=== PATIENT | female | born 1975 | race African-American/Black ===

== ENCOUNTER 2019-01-02 15:01 | Emergency (ER) | payer OTHER ==
[~2019-01-02] VITALS: Ht 154.9 cm; Wt 81.7 kg
[~2019-01-02 15:01] MED LIST: BACTRIM DS TAB1 EACH PO; NORCO 5-325 TA1 EACH PO; PREDNISONE 20 M20 MG PO; PROAIR HFA8.5 GM IH; PROVENTIL HFA6.7 G1 INH; SYMBICORT160 MCG/4. INH
[2019-01-02] MEDS ORDERED: ALESSE-281 EACH PO (15:32)
[2019-01-02] MEDS ORDERED: PREDNISONE 20 M20 M1 PO (16:11)
[2019-01-02] MEDS ORDERED: SINGULAIR 10 MG10 M1 PO (16:11)
[2019-01-02] MEDS ORDERED: ALBUTEROL2.5 MG/31 INH (16:54)
[2019-01-02] MEDS ORDERED: NEBULIZER MISCELL (16:54)
[2019-01-02 17:04] VITALS: BP 124/84
--- NOTE | 2019-01-03 10:59 | EKG ---
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: TIMUR : 1975 Requested By: Michael Plummer Order Number: [id number] MD: Richard Acuna Measurements Intervals [place] Rate: 71 P: 50 MS: 175 QRS: 45 QRSD: 83 T: 30 QT: 398 QTc: 433 Interpretive Statements Sinus rhythm Borderline T abnormalities, anterior leads No previous ECG available for comparison Electronically Signed On 01-03-2019 10:59:04 [employer]SULTANT by Richard Acuna [email or web address] ��������������������������������������������� <ELECTRONICALLY SIGNED> ���������������������������������������� By: Richard Acuna MD, [facility] ��������������������������������������������� 01/03/19 1059 [address] [facility] Richard Acuna MD, FACC /EPI
== END 2019-01-02 17:05 | disposition home or self-care (01) ==
LOC: ER 15:01
DX: J45.901 Unspecified asthma with (acute) exacerbation (principal); N80.9 Endometriosis, unspecified; Z88.6 Allergy status to analgesic agent; Z88.0 Allergy status to penicillin; Z90.721 Acquired absence of ovaries, unilateral

== ENCOUNTER 2019-10-06 09:48 | Emergency (ER) | payer OTHER ==
[~2019-10-06] VITALS: Ht 154.9 cm; Wt 81.7 kg
[~2019-10-06 09:48] MED LIST changes: +ALBUTEROL2.5 MG/31 INH; +ALESSE-281 EACH PO; +NEBULIZER MISCELL; +PREDNISONE 20 M20 M1 PO; +SINGULAIR 10 MG10 M1 PO
[2019-10-06 10:02] LABS: URINE BILIRUBIN NEGATIVE (Negative); URINE BLOOD NEGATIVE (Negative); URINE CLARITY CLEAR; URINE COLOR YELLOW; URINE GLUCOSE-RANDOM* NEGATIVE (Negative); URINE KETONES NEGATIVE (Negative); URINE LEUKOCYTES-REFLEX 1+ (Negative); URINE NITRITE-REFLEX NEGATIVE (Negative); URINE PROTEIN (DIPSTICK) NEGATIVE (Negative); URINE UROBILINOGEN 0.2 E.U./dl (0.2-1.0)
[2019-10-06 10:25] LABS: ABSOLUTE NEUTROPHILS 2.6 thou/uL (1.4-8.2); BASOPHILS 0.9 % (0.0-2.0); EOSINOPHILS 0.5 % (0.0-3.0); HEMATOCRIT 43.4 % (37.0-47.0); HEMOGLOBIN 13.8 gm/dL (12.0-15.0); MCH 26.5 pg (26.0-34.0); MCHC 31.8 g/dL (28.0-37.0); MCV 83.4 fL (80.0-100.0); MONOCYTES 9.2 % (1.0-8.0); PLATELET COUNT 330 thou/uL (150-400); POLYS 44.4 % (36.0-66.0); RDW 15.6 % (10.5-14.5); WBC 5.8 thou/uL (4.0-11.0)
[2019-10-06 10:27] LABS: CALCIUM 9.4 mg/dL (8.5-10.1); CREATININE 0.9 mg/dL (0.6-1.0); POTASSIUM 4.3 mmol/L (3.5-5.1)
[2019-10-06 10:33] LABS: ALBUMIN 3.9 g/dL (3.4-5.0); TOTAL BILIRUBIN 0.5 mg/dL (<0.1-1.0); TOTAL PROTEIN 8.1 g/dL (6.4-8.2)
[2019-10-06 10:35] LABS: BACTERIA-REFLEX 1-9 Few /HPF (None Seen); CASTS None Seen /LPF (None Seen); CRYSTALS None Seen /LPF (None Seen); SQUAMOUS >10 Many /LPF (0-3); URINE RBC None Seen /HPF (0-2); URINE WBC-REFLEX 6-15 Few /HPF (0-5)
[2019-10-06] MEDS ORDERED: MOBIC15 MG PO (12:32)
[2019-10-06 12:34] VITALS: BP 124/68
[2019-10-06] MEDS ORDERED: KEFLEX500 M2 PO (12:42)
== END 2019-10-06 12:34 | disposition home or self-care (01) ==
LOC: ER 09:48
PROVIDERS: Emergency Medicine
DX: R10.84 Generalized abdominal pain (principal); J45.909 Unspecified asthma, uncomplicated; N80.9 Endometriosis, unspecified; Z98.51 Tubal ligation status; Z88.0 Allergy status to penicillin; Z88.6 Allergy status to analgesic agent

== ENCOUNTER 2020-03-15 19:02 | Emergency (ER) | payer BC ==
[~2020-03-15] VITALS: Ht 154.9 cm; Wt 83.5 kg
[~2020-03-15 19:02] MED LIST changes: +KEFLEX500 M2 PO; +MOBIC15 MG PO
[2020-03-15 20:27] LABS: ABSOLUTE NEUTROPHILS 5.4 thou/uL (1.4-8.2); BASOPHILS 0.7 % (0.0-2.0); EOSINOPHILS 0.9 % (0.0-3.0); HEMATOCRIT 40.1 % (37.0-47.0); HEMOGLOBIN 13.1 gm/dL (12.0-15.0); LYMPHOCYTES 31.1 % (24.0-44.0); MCH 27.7 pg (26.0-34.0); MCHC 32.7 g/dL (28.0-37.0); MCV 84.8 fL (80.0-100.0); MONOCYTES 11.4 % (1.0-8.0); PLATELET COUNT 291 thou/uL (150-400); POLYS 55.9 % (36.0-66.0); RBC 4.73 mil/uL (4.20-5.00); RDW 15.4 % (10.5-14.5); WBC 9.6 thou/uL (4.0-11.0)
[2020-03-15 20:33] LABS: ANION GAP 2 mmol/L (7-16); BUN 10 mg/dL (7-18); CALCIUM 8.6 mg/dL (8.5-10.1); CHLORIDE 102 mmol/L (98-107); CO2 31 mmol/L (21-32); CREATININE 0.9 mg/dL (0.6-1.0); GLUCOSE 103 mg/dL (74-106); POTASSIUM 3.6 mmol/L (3.5-5.1); SODIUM 135 mmol/L (136-145)
[2020-03-15 20:44] LABS: ALBUMIN 3.5 g/dL (3.4-5.0); SGOT 14 U/L (15-37); SGPT 27 U/L (30-65); TOTAL BILIRUBIN 0.4 mg/dL (<0.1-1.0); TOTAL PROTEIN 7.9 g/dL (6.4-8.2); TROPONIN-I <0.06 ng/mL (<0.06)
[2020-03-15] MEDS ORDERED: PREDNISONE 20 M20 M1 PO (21:05)
[2020-03-15 21:21] VITALS: BP 143/78
--- NOTE | 2020-03-16 08:01 | EKG ---
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
== END 2020-03-15 21:26 | disposition home or self-care (01) ==
LOC: ER 19:02
PROVIDERS: Emergency Medicine
DX: J45.901 Unspecified asthma with (acute) exacerbation (principal); Z03.818 Encounter for observation for suspected exposure to other biological agents ruled out; Z98.51 Tubal ligation status; Z79.899 Other long term (current) drug therapy; Z88.6 Allergy status to analgesic agent; Z88.0 Allergy status to penicillin

== ENCOUNTER 2020-06-21 20:42 | Emergency (ER) | payer BC ==
[~2020-06-21] VITALS: Ht 154.9 cm; Wt 81.7 kg
[2020-06-21] MEDS ORDERED: SYMBICORT160 MCG/4. INH (20:59)
[2020-06-21 22:41] LABS: URINE BILIRUBIN NEGATIVE (Negative); URINE BLOOD 2+ (Negative); URINE CLARITY CLEAR; URINE COLOR YELLOW; URINE GLUCOSE-RANDOM* NEGATIVE (Negative); URINE KETONES NEGATIVE (Negative); URINE LEUKOCYTES-REFLEX NEGATIVE (Negative); URINE NITRITE-REFLEX NEGATIVE (Negative); URINE PROTEIN (DIPSTICK) NEGATIVE (Negative); URINE SPECIFIC GRAVITY >= 1.030 (1.005-1.035); URINE UROBILINOGEN 0.2 E.U./dl (0.2-1.0)
[2020-06-21 23:11] LABS: BACTERIA-REFLEX 1-9 Few /HPF (None Seen); CASTS None Seen /LPF (None Seen); CRYSTALS None Seen /LPF (None Seen); MUCUS 4-6 Moderate strn/LPF (None Seen); SQUAMOUS 4-10 Moderate /LPF (0-3); URINE WBC-REFLEX 0-5 Rare /HPF (0-5)
[2020-06-21 23:50] LABS: ABSOLUTE NEUTROPHILS 2.8 thou/uL (1.4-8.2); EOSINOPHILS 0.9 % (0.0-3.0); HEMATOCRIT 38.9 % (37.0-47.0); HEMOGLOBIN 12.9 gm/dL (12.0-15.0); LYMPHOCYTES 38.7 % (24.0-44.0); MCH 27.8 pg (26.0-34.0); MCHC 33.1 g/dL (28.0-37.0); MONOCYTES 8.2 % (1.0-8.0); PLATELET COUNT 270 thou/uL (150-400); POLYS 51.2 % (36.0-66.0); RBC 4.63 mil/uL (4.20-5.00); RDW 15.5 % (10.5-14.5); WBC 5.4 thou/uL (4.0-11.0)
[2020-06-21 23:55] LABS: ANION GAP 11 mmol/L (7-16); BUN 10 mg/dL (7-18); CALCIUM 8.8 mg/dL (8.5-10.1); CHLORIDE 105 mmol/L (98-107); CO2 23 mmol/L (21-32); CREATININE 0.7 mg/dL (0.6-1.0); GLUCOSE 93 mg/dL (74-106); POTASSIUM 5.4 mmol/L (3.5-5.1); SODIUM 139 mmol/L (136-145)
[2020-06-22 00:01] LABS: ALBUMIN 3.7 g/dL (3.4-5.0); DIRECT BILIRUBIN < 0.1 mg/dL (<0.1-0.2); LIPASE 226 U/L (73-393); SGOT 25 U/L (15-37); SGPT 18 U/L (30-65); TOTAL BILIRUBIN 0.6 mg/dL (0.2-1.0); TOTAL PROTEIN 7.3 g/dL (6.4-8.2)
[2020-06-22] MEDS ORDERED: MOBIC15 MG PO (01:38)
[2020-06-22] MEDS ORDERED: NORCO 5-325 TA1 EAC2 PO (01:38)
[2020-06-22 02:08] VITALS: BP 125/71
== END 2020-06-22 02:05 | disposition home or self-care (01) ==
LOC: ER 20:42
PROVIDERS: Emergency Medicine
DX: M51.26 Other intervertebral disc displacement, lumbar region (principal); R10.9 Unspecified abdominal pain; R35.0 Frequency of micturition; J45.909 Unspecified asthma, uncomplicated; Z98.51 Tubal ligation status; Z79.899 Other long term (current) drug therapy; Z88.6 Allergy status to analgesic agent; Z88.0 Allergy status to penicillin